=== PATIENT | male | born 1930 | race Caucasian/White ===

== ENCOUNTER 2018-09-30 08:06 | Day surgery (SDC) | payer MEDICARE, OTHER ==
[~2018-09-30 08:06] MED LIST: Bupivacaine 0.25%/EPINEPHrine 1:200,000 10 ML SDV INJECT ONE; Lactated Ringers 1,000 ML IV SCH; ceFAZolin 2 GM in Premix Bag 1 BAG IV ONE; traMADol 50 MG Tab PO PRN
--- NOTE | 2018-09-30 08:53 | PCM.PREANE ---
Preanesthetic Assessment - Anesthesia/Transfusion/Family Hx Anesthesia History: Prior Anesthesia Without Reaction Other Type of Anesthesia Reaction Comment: Denies any known problems Family History of Anesthesia Reaction: No Transfusion History: No Prior Transfusion(s) - Review of Systems General: No Symptoms Pulmonary: No Symptoms Cardiovascular: No Symptoms Gastrointestinal: No Symptoms Neurological: No Symptoms Other: Reports: None - Physical Assessment NPO Status Date: 09/29/18 O2 Sat by Pulse Oximetry: 97 Respiratory Rate: 15 Vital Signs: Last Vital Signs Temp 98.1 F 09/30/18 08:30 Pulse 61 09/30/18 08:30 Resp 15 09/30/18 08:30 BP 177/82 H 09/30/18 08:30 Pulse Ox 97 09/30/18 08:30 Height: 5 ft 9 in Weight: 74.843 kg ASA Class: 3 Mental Status: Alert & Oriented x3 Airway Class: Mallampati = 3 Dentition: Reports: Normal Dentition ROM/Head Extension: Full Lungs: Clear to Auscultation, Normal Respiratory Effort Cardiovascular: Regular Rate, Regular Rhythm - Allergies Allergies/Adverse Reactions: Allergies Allergy/AdvReac Type Severity Reaction Status Date / Time No Known Allergies Allergy Verified 09/29/18 07:45 - Blood Blood Available: No - Anesthesia Plan Pre-Op Medication Ordered: None - Acknowledgements Anesthesia Type Planned: General Anesthesia, MAC Pt an Appropriate Candidate for the Planned Anesthesia: Yes Alternatives and Risks of Anesthesia Discussed w Pt/Guardian: Yes Pt/Guardian Understands and Agrees with Anesthesia Plan: Yes Additional Comments: PMH: cad with stents x 2 10 years ago, no ischemic sx, BPH, hld, htn, thrombocytopenia PLAN: mac/tiva PreAnesthesia Questionnaire HEENT History: Reports: Impaired Vision Other HEENT History: wears glasses Cardiovascular History: Reports: CAD, High Cholesterol Respiratory History: Reports: None Gastrointestinal History: Reports: None Genitourinary History: Reports: None Neurological History: Reports: None Psychiatric History: Reports: None Endocrine/Metabolic History: Reports: None Hematologic History: Reports: None Immunologic History: Reports: None Oncologic (Cancer) History: Reports: None Dermatologic History: Reports: None - Past Surgical History Head Surgeries/Procedures: Reports: None HEENT Surgical History: Reports: Cataract Surgery, Tonsillectomy Cardiovascular Surgical History: Reports: Coronary Artery Stent Other Cardiovascular Surgeries/Procedures: x2 in 2007 Respiratory Surgical History: Reports: None GI Surgical History: Reports: None Male Surgical History: Reports: None Endocrine Surgical History: Reports: None Neurological Surgical History: Reports: None Musculoskeletal Surgical History: Reports: Carpal Tunnel, Other (See Below) Other Musculoskeletal Surgeries/Procedures:: lesion removal right ankle, tendon repair right finger, bilateral carpal tunnel Oncologic Surgical History: Reports: None Dermatological Surgical History: Reports: None - SUBSTANCE USE Smoking Status *Q: Former Smoker Tobacco Use Within Last Twelve Months: No Recreational Drug Use History: No - HOME MEDS Home Medications: Home Meds Aspirin [Adult Low Dose Aspirin EC] 81 mg PO DAILY 12/20/13 [History] Carvedilol [Coreg] 0.5 tab PO BID 12/20/13 [History] Doxazosin [Cardura] 0.5 tab PO BEDTIME 12/20/13 [History] atorvaSTATin [Lipitor] 0.5 tab PO BEDTIME 12/20/13 [History] - CURRENT (IN HOUSE) MEDS Current Meds: Current Medications Lactated Ringer's (Ringers, Lactated) 1,000 mls @ 125 mls/hr IV ASDIRECTED [facility] Last Admin: 09/30/18 08:46 Dose: 125 mls/hr Tramadol HCl (Ultram) 50 mg PO Q4H PRN PRN Reason: Pain Discontinued Medications Bupivacaine HCl/Epinephrine Bitart (Marcaine 0.25%/Epinephrine 1:200,000) 10 ml INJECT ONETIME ONE Stop: 09/30/18 08:01 Cefazolin Sodium/Dextrose 2 gm (/ Premix) 50 mls @ 100 mls/hr IV ONETIME ONE Stop: 09/30/18 08:29
[2018-09-30] MEDS ORDERED: fentaNYL 100 MCG/2 ML SDV ONE (09:43)
[2018-09-30] MEDS ORDERED: Propofol 200 MG/20 ML SDV ONE (09:43)
[2018-09-30] MEDS ORDERED: Sodium Chloride 0.9% 20 ML ONE (09:55)
[2018-09-30] MEDS ORDERED: ceFAZolin 1 GM Vial ONE (09:55)
[2018-09-30] MEDS ORDERED: Bupivacaine 0.25%/EPINEPHrine 1:200,000 10 ML SDV ONE (09:57)
[2018-09-30 10:48] VITALS: BP 136/61
--- NOTE | 2018-09-30 12:30 | PCM48HPAN ---
Post Anesthesia Note - EVALUATION WITHIN 48HRS OF ANESTHETIC Vital Signs in Normal Range: Yes Patient Participated in Evaluation: Yes Respiratory Function Stable: Yes Airway Patent: Yes Cardiovascular Function Stable: Yes Hydration Status Stable: Yes Pain Control Satisfactory: Yes Nausea and Vomiting Control Satisfactory: Yes Mental Status Recovered: Yes Resp Rate: 15
--- NOTE | 2018-10-01 12:37 | PCM.OPNOTE ---
- General Post-Op/Procedure Note Date of Surgery/Procedure: 09/30/18 Operative Procedure(s): left middle finger trigger finger release and excision of central chest inflamed cyst 1.5cm total lenght of excision with simple closure Pre Op Diagnosis: left middle figner trigger finger central chest inflamed cyst 1cm Post-Op Diagnosis: Same Anesthesia Technique: Local, MAC Primary Surgeon: Christel Rivera [employer] Professor: Karishma Hester Complications: None Condition: Good
--- NOTE | 2018-10-01 18:59 | OR ---
SURGEON: ROSANNE SAGASTUME MD DATE OF PROCEDURE: 09/30/2018 PREOPERATIVE DIAGNOSIS: Left middle finger trigger finger and central chest inflamed cyst 1 cm. POSTOPERATIVE DIAGNOSIS: Left middle finger trigger finger and central chest inflamed cyst 1 cm. PROCEDURES: 1. Left middle finger trigger finger release. 2. Excision of central chest inflamed cyst 1.5 cm total length of excision with simple closure. SHANK BONER: KELLI William. ANESTHESIA: Local MAC. INDICATIONS: Mr. James Villegas is an 88-year-old gentleman with several problems today. Risks and benefits of removal of the chest lesion that has been inflamed numerous times may cause infection were discussed with him. He was also in agreement to proceed with a trigger finger release. We will proceed with trigger finger as it is a clean part of the case. This will go first. PROCEDURE IN DETAIL: After informed consent was obtained and placed on the chart, the patient was brought to the operating theater and laid in supine position. After adequate local MAC anesthesia was obtained, the area was prepped and draped, and a time- out was completed to confirm side and site. Attention was then paid to release of left middle finger trigger finger with a #15 blade through the skin. Subcutaneous tissues were then completed under blunt dissection until visualization of the A1 melody. A #15 blade was used to breach this and scissor was carried distally and proximally under direct visualization until complete release. The tendon was then brought through range of motion to ensure that there was no other suspicious lesions. There was a small ganglion cyst on the tendon itself that was also removed. Once this was completed, the area was irrigated and closed using a 5-0 nylon stitch in a horizontal mattress fashion. Attention was then paid to the central chest inflamed cyst. With separate prepping and appropriate draping, the lesion was excised in an elliptical fashion for a total length of 1.5 cm. It was sent for pathology. Once adequately excised, the wound was closed using a 4-0 Monocryl in a running subcuticular fashion for a total length of 1.5 cm in a simple closure. The wound was dressed with a Tegaderm border. The patient tolerated this well. All counts and needles were correct at the end of the case. FOLLOWUP INSTRUCTIONS: The patient will see us in 10 to 14 days for suture removal, sooner if any problems, questions, or concerns. HEGGTHE / MODL /[id number]
== END 2018-09-30 11:20 | disposition home or self-care (01) ==
LOC: MW.SDS 08:06
PROVIDERS: ATTEND Plastic Surgery
DX: M65.332 Trigger finger, left middle finger (principal); L72.0 Epidermal cyst; I10 Essential (primary) hypertension; E78.00 Pure hypercholesterolemia, unspecified; N40.1 Benign prostatic hyperplasia with lower urinary tract symptoms; R35.1 Nocturia; Z79.82 Long term (current) use of aspirin; Z79.899 Other long term (current) drug therapy; Z87.891 Personal history of nicotine dependence
CPT/HCPCS: 11402; 26055; J0690; J2704; J3010; J3490; J7120

== ENCOUNTER 2019-01-22 14:51 | Inpatient (IN) | payer MEDICARE, OTHER ==
[2019-01-22] MEDS ORDERED: Sodium Chloride 0.9% 10 ML Syringe FLUSH PRN (15:55)
[2019-01-22] MEDS ORDERED: Sodium Chloride 0.9% 2.5 ML Syringe FLUSH PRN (15:55)
[2019-01-22] MEDS ORDERED: Morphine 2 MG/ML Syringe IVPUSH ONE ×2 (15:57→18:08)
--- NOTE | 2019-01-22 15:57 | CR ---
INDICATION: Chest pain and shortness of breath TECHNIQUE: Chest 2 views COMPARISON: July 04, 2014 FINDINGS: Cardiovascular and mediastinum: Heart size and vasculature are normal in caliber and appearance. Lungs and pleural spaces: There is blunting of the right costophrenic angle. Minimal bibasilar atelectasis or scarring. Remainder of the lungs and pleural spaces are clear. No pneumothorax. Bones and soft tissues: No rib fractures or lesions evident. IMPRESSION: Possible trace right-sided pleural effusion. Remainder of the exam is unremarkable. No other specific finding to explain chest pain or shortness of breath. Dictated by Bobo Mcallister MD @ Jan 22 2019 3:54PM Signed by Dr. Bobo Mcallister @ Jan 22 2019 3:56PM
[2019-01-22] MEDS ORDERED: Sodium Chloride 0.9% 500 ML IV SCH (16:00)
--- NOTE | 2019-01-22 16:02 | EDM.PDOC ---
ED HPI GENERAL MEDICAL PROBLEM - General Chief Complaint: Respiratory Problem Stated Complaint: PAIN IN SIDE WHEN TAKING A BREATH Time Seen by Provider: 01/22/19 15:31 - History of Present Illness INITIAL COMMENTS - FREE TEXT/NARRATIVE: HISTORY AND PHYSICAL: History of present illness: The patient is 88-year-old male with a history of hypertension hypercholesterolemia who follows with Dr. Dow in our clinic and presents with 3 days of pain at his right anterior and lateral rib area he says is at the rib level and underneath it. He says that if he takes a deep breath the pain is intensified and movement also makes the pain worse. He has not had a cough or fever his had no vomiting or diarrhea and no flank pain and no urinary issues. He tells me that there is some discomfort in the right upper quadrant area but he feels like it is underneath his ribs and in the rib cage area. He denies any recent trauma. He has no pulmonary or cardiac history. The patient says that he had dental work recently and had been on some antibiotics for that. Review of systems: As per history of present illness and below otherwise all systems reviewed and negative. Past medical history: As per history of present illness and as reviewed below otherwise noncontributory. Surgical history: As per history of present illness and as reviewed below otherwise noncontributory. Social history: No reported history of drug or alcohol abuse. Family history: As per history of present illness and as reviewed below otherwise noncontributory. Physical exam: General: Well-developed well-nourished thin man who is nontoxic and looks uncomfortable with movement and any deep breaths. He speaking without breathlessness and vital signs are noted by me. HEENT: Atraumatic, normocephalic, pupils reactive, negative for conjunctival pallor or scleral icterus, mucous membranes moist, throat clear, neck supple, nontender, trachea midline. Lungs: Diminished breath sounds bilaterally but very diminished on the right mid to lower lung field with minimal air exchange but no work of breathing wheezing or stridor, there is reproducible tenderness when I palpate the lateral right lower ribs extending into the anterior axillary line but there is no anterior chest wall or rib tenderness, there is no defects deformities crepitus or ecchymosis Heart: S1S2, regular rate and rhythm, negative for clicks, rubs, or JVD. Abdomen: Soft, nondistended, bowel sounds are hypoactive and there is some diffuse right-sided abdominal tenderness more in the right upper quadrant and right mid abdomen with some voluntary guarding but no involuntary guarding or rebound. Negative for masses or hepatosplenomegaly. Negative for costovertebral tenderness. Pelvis: Stable nontender. Genitourinary: Deferred. Rectal: Deferred. Extremities: Atraumatic, negative for cords or calf pain. Neurovascular unremarkable. No pedal edema Neuro: Awake, alert, oriented. Cranial nerves II through XII unremarkable. Cerebellum unremarkable. Motor and sensory unremarkable throughout. Exam nonfocal. Diagnostics: CBC CMP INR lactic acid chest x-ray CT scan of the chest abdomen and pelvis PTT Therapeutics: IV O2 monitor IV fluids morphine Toradol Heparin per protocol Dr. Heaton from [facility] has contacted me and has said that there is no acute findings in the abdomen and pelvis but on the CTA of the chest the patient does have a large clot load in the right lower lobe and no other PE elsewhere especially in the central vessels. There is some mild RV strain. 191: Case was discussed with Dr. Shelley who would like heparin per protocol to be given with the bolus and drip and admission as an observation. I will place him on telemetry. I discussed the CT scan and lab results with the patient and he is agreeable to admission. The patient and friend at bedside are now telling me that he was seen for varicose veins earlier this week in [place] and he is possibly wearing compression hose. He says that he does not been wearing them the last few days. Patient has never been hypoxic or to The care nor has he ever complained of shortness of breath. Impression: Right lower lobe pulmonary embolism Definitive disposition and diagnosis as appropriate pending reevaluation and review of above. Right Chest Pain Score (Numeric/FACES): 10 - Related Data Allergies Allergy/AdvReac Type Severity Reaction Status Date / Time No Known Allergies Allergy Verified 01/22/19 15:33 Home Meds: Home Meds Aspirin [Adult Low Dose Aspirin EC] 81 mg PO DAILY 12/20/13 [History] Carvedilol [Coreg] 0.5 tab PO BEDTIME 12/20/13 [History] Doxazosin [Cardura] 0.5 tab PO BEDTIME 12/20/13 [History] atorvaSTATin [Lipitor] 0.5 tab PO BEDTIME 12/20/13 [History] traMADol [Ultram] 50 mg PO Q4H PRN #20 tablet 09/30/18 [Rx] Penicillin V Potassium 500 mg PO Q6HR 01/22/19 [History] Past Medical History HEENT History: Reports: Impaired Vision Other HEENT History: wears glasses Cardiovascular History: Reports: CAD, High Cholesterol, Stents Respiratory History: Reports: None Gastrointestinal History: Reports: None Genitourinary History: Reports: None Neurological History: Reports: None Psychiatric History: Reports: None Endocrine/Metabolic History: Reports: None Hematologic History: Reports: None Immunologic History: Reports: None Oncologic (Cancer) History: Reports: None Dermatologic History: Reports: None - Past Surgical History HEENT Surgical History: Reports: Cataract Surgery, Tonsillectomy Cardiovascular Surgical History: Reports: Coronary Artery Stent Other Cardiovascular Surgeries/Procedures: x2 in 2007 Respiratory Surgical History: Reports: None GI Surgical History: Reports: None Male Surgical History: Reports: None Endocrine Surgical History: Reports: None Neurological Surgical History: Reports: None Musculoskeletal Surgical History: Reports: Carpal Tunnel, Other (See Below) Other Musculoskeletal Surgeries/Procedures:: lesion removal right ankle, tendon repair right finger, bilateral carpal tunnel Oncologic Surgical History: Reports: None Dermatological Surgical History: Reports: None Social & Family History - Family History Family Medical History: Noncontributory - Tobacco Use Smoking Status *Q: Never Smoker - Recreational Drug Use Recreational Drug Use: No ED ROS GENERAL - Review of Systems Review Of Systems: ROS reveals no pertinent complaints other than HPI. ED EXAM, GENERAL - Physical Exam Exam: See Below (See dictation) Course - Vital Signs Last Recorded V/S: Last Vital Signs Temp 36.7 C 01/22/19 15:38 Pulse 70 01/22/19 18:51 Resp 16 01/22/19 18:18 BP 110/56 L 01/22/19 18:51 Pulse Ox 95 01/22/19 18:18 - Orders/Labs/Meds Orders: Active Orders 24 hr Category Date Time Status Patient Status [ADT] Stat ADT 01/22/19 19:18 Ordered Cardiac Monitoring [RC] . DIRECTED Care 01/22/19 15:55 Active Oxygen Therapy, ED [RC] ASDIRECTED Care 01/22/19 15:55 Active Pulse Oximetry [RC] ASDIRECTED Care 01/22/19 15:55 Active PTT,PARTIAL THROMBOPLSTIN TIME [COAG] Stat Lab 01/22/19 19:18 Ordered Heparin Sod,Pork In 0.45% Nacl [Heparin-1/2Ns 25,000 Med 01/22/19 19:30 Active Units/500] 25,000 unit in 500 ml IV TITRATE Sodium Chloride 0.9% [Normal Saline] 500 ml Med 01/22/19 16:00 Active IV STAT Sodium Chloride 0.9% [Saline Flush] Med 01/22/19 15:55 Active 10 ml FLUSH ASDIRECTED PRN Sodium Chloride 0.9% [Saline Flush] Med 01/22/19 15:55 Active 2.5 ml FLUSH ASDIRECTED PRN Saline Lock Insert [OM.PC] Stat Oth 01/22/19 15:55 Ordered Medication Orders Sodium Chloride (Normal Saline) 500 mls @ 999 mls/hr IV STAT MAE Last Admin: 01/22/19 16:34 Dose: 999 mls/hr Heparin Sodium/Sodium Chloride (Heparin-1/2ns 25,000 Units/500) 25,000 unit in 500 mls @ 25.311 mls/hr IV TITRATE MAE; Protocol Sodium Chloride (Saline Flush) 10 ml FLUSH ASDIRECTED PRN PRN Reason: Keep Vein Open Last Admin: 01/22/19 16:34 Dose: 10 ml Sodium Chloride (Saline Flush) 2.5 ml FLUSH ASDIRECTED PRN PRN Reason: Keep Vein Open Last Admin: 01/22/19 16:34 Dose: 2.5 ml Labs: Laboratory Tests 01/22/19 01/22/19 01/22/19 Range/Units 16:26 16:26 16:26 WBC 10.47 (4.0-11.0) K/uL RBC 4.33 L (4.50-5.90) M/uL Hgb 13.0 (13.0-17.0) g/dL Hct 39.1 (38.0-50.0) % MCV 90.3 (80.0-98.0) fL MCH 30.0 (27.0-32.0) pg MCHC 33.2 (31.0-37.0) g/dL RDW Std Deviation 47.0 (28.0-62.0) fl RDW Coeff of Rosalio 14 (11.0-15.0) % Plt Count 111 L (150-400) K/uL MPV 9.60 (7.40-12.00) fL Neut % (Auto) 82.9 H (48.0-80.0) % Lymph % (Auto) 5.7 L (16.0-40.0) % [place] % (Auto) 11.1 (0.0-15.0) % Eos % (Auto) 0.1 (0.0-7.0) % Baso % (Auto) 0.2 (0.0-1.5) % Neut # (Auto) 8.7 H (1.4-5.7) K/uL Lymph # (Auto) 0.6 (0.6-2.4) K/uL [place] # (Auto) 1.2 H (0.0-0.8) K/uL Eos # (Auto) 0.0 (0.0-0.7) K/uL Baso # (Auto) 0.0 (0.0-0.1) K/uL Nucleated RBC % 0.0 /100WBC Nucleated RBCs # 0 K/uL INR 1.14 Lactate 1.0 (0.20-2.00) mmol/L Sodium (136-148) mmol/L Potassium (3.5-5.1) mmol/L Chloride (98-107) mmol/L Carbon Dioxide (21.0-32.0) mmol/L BUN (7.0-18.0) mg/dL Creatinine (0.8-1.3) mg/dL Est Cr Clr Drug Dosing mL/min Estimated GFR (MDRD) ml/min Glucose (74-106) mg/dL Calcium (8.5-10.1) mg/dL Total Bilirubin (0.2-1.0) mg/dL AST (15-37) IU/L ALT (14-63) IU/L Alkaline Phosphatase (46-116) U/L Total Protein (6.4-8.2) g/dL Albumin (3.4-5.0) g/dL Globulin (2.6-4.0) g/dL Albumin/Globulin Ratio (0.9-1.6) 01/22/19 Range/Units 16:26 WBC (4.0-11.0) K/uL RBC (4.50-5.90) M/uL Hgb (13.0-17.0) g/dL Hct (38.0-50.0) % MCV (80.0-98.0) fL MCH (27.0-32.0) pg MCHC (31.0-37.0) g/dL RDW Std Deviation (28.0-62.0) fl RDW Coeff of Rosalio (11.0-15.0) % Plt Count (150-400) K/uL MPV (7.40-12.00) fL Neut % (Auto) (48.0-80.0) % Lymph % (Auto) (16.0-40.0) % [place] % (Auto) (0.0-15.0) % Eos % (Auto) (0.0-7.0) % Baso % (Auto) (0.0-1.5) % Neut # (Auto) (1.4-5.7) K/uL Lymph # (Auto) (0.6-2.4) K/uL [place] # (Auto) (0.0-0.8) K/uL Eos # (Auto) (0.0-0.7) K/uL Baso # (Auto) (0.0-0.1) K/uL Nucleated RBC % /100WBC Nucleated RBCs # K/uL INR Lactate (0.20-2.00) mmol/L Sodium 135 L (136-148) mmol/L Potassium 3.9 (3.5-5.1) mmol/L Chloride 101 (98-107) mmol/L Carbon Dioxide 25.5 (21.0-32.0) mmol/L BUN 22 H (7.0-18.0) mg/dL Creatinine 1.2 (0.8-1.3) mg/dL Est Cr Clr Drug Dosing 41.96 mL/min Estimated GFR (MDRD) 57.3 ml/min Glucose 125 H (74-106) mg/dL Calcium 8.7 (8.5-10.1) mg/dL Total Bilirubin 0.9 (0.2-1.0) mg/dL AST 22 (15-37) IU/L ALT 20 (14-63) IU/L Alkaline Phosphatase 57 (46-116) U/L Total Protein 6.6 (6.4-8.2) g/dL Albumin 2.6 L (3.4-5.0) g/dL Globulin 4.0 (2.6-4.0) g/dL Albumin/Globulin Ratio 0.7 L (0.9-1.6) Meds: Medications Generic Name Dose Route Start Last Admin Trade Name Freq PRN Reason Stop Dose Admin Sodium Chloride 500 mls @ 999 mls/hr 01/22/19 16:00 01/22/19 16:34 Normal Saline IV 999 mls/hr STAT MAE Administration Heparin Sodium/Sodium Chloride 25,000 unit in 500 mls @ 25.311 mls/hr 19:30 Heparin-1/2ns 25,000 Units/500 IV TITRATE MAE Protocol 18 UNITS/KG/HR Sodium Chloride 10 ml 01/22/19 15:55 01/22/19 16:34 Saline Flush FLUSH 10 ml ASDIRECTED PRN Administration Keep Vein Open Sodium Chloride 2.5 ml 01/22/19 15:55 01/22/19 16:34 Saline Flush FLUSH 2.5 ml ASDIRECTED PRN Administration Keep Vein Open Discontinued Medications Generic Name Dose Route Start Last Admin Trade Name Freq PRN Reason Stop Dose Admin Heparin Sodium (Porcine) 5,000 units 01/22/19 19:19 Heparin Sodium IVPUSH 01/22/19 19:20 .BOLUS ONE Iopamidol 100 ml 01/22/19 18:07 01/22/19 18:08 Isovue Multipack-370 (76%) IVPUSH 01/22/19 18:08 100 ml ONETIME STA Administration Ketorolac Tromethamine 15 mg 01/22/19 18:08 01/22/19 18:14 Toradol IVPUSH 01/22/19 18:09 15 mg ONETIME ONE Administration Morphine Sulfate 2 mg 01/22/19 15:57 01/22/19 16:34 Morphine IVPUSH 01/22/19 15:58 2 mg ONETIME ONE Administration Morphine Sulfate 4 mg 01/22/19 18:08 01/22/19 18:14 Morphine IVPUSH 01/22/19 18:09 4 mg ONETIME ONE Administration Departure - Departure Time of Disposition: 19:21 Disposition: Refer to Observation Condition: Good Clinical Impression: Pulmonary embolism Qualifiers: Pulmonary embolism type: unspecified Chronicity: acute - Discharge Information Referrals: PCP,Unknown [Primary Care Provider] - Forms: ED Department Discharge - My Orders Last 24 Hours: My Active Orders 01/22/19 15:55 Cardiac Monitoring [RC] . DIRECTED Oxygen Therapy, ED [RC] ASDIRECTED Pulse Oximetry [RC] ASDIRECTED Sodium Chloride 0.9% [Saline Flush] 10 ml FLUSH ASDIRECTED PRN Sodium Chloride 0.9% [Saline Flush] 2.5 ml FLUSH ASDIRECTED PRN Saline Lock Insert [OM.PC] Stat 01/22/19 16:00 Sodium Chloride 0.9% [Normal Saline] 500 ml IV STAT 01/22/19 19:18 Patient Status [ADT] Stat PTT,PARTIAL THROMBOPLSTIN TIME [COAG] Stat 01/22/19 19:30 Heparin Sod,Pork In 0.45% Nacl [Heparin-1/2Ns 25,000 Units/500] 25,000 unit in 500 ml IV TITRATE - Assessment/Plan Last 24 Hours: My Active Orders 01/22/19 15:55 Cardiac Monitoring [RC] . DIRECTED Oxygen Therapy, ED [RC] ASDIRECTED Pulse Oximetry [RC] ASDIRECTED Sodium Chloride 0.9% [Saline Flush] 10 ml FLUSH ASDIRECTED PRN Sodium Chloride 0.9% [Saline Flush] 2.5 ml FLUSH ASDIRECTED PRN Saline Lock Insert [OM.PC] Stat 01/22/19 16:00 Sodium Chloride 0.9% [Normal Saline] 500 ml IV STAT 01/22/19 19:18 Patient Status [ADT] Stat PTT,PARTIAL THROMBOPLSTIN TIME [COAG] Stat 01/22/19 19:30 Heparin Sod,Pork In 0.45% Nacl [Heparin-1/2Ns 25,000 Units/500] 25,000 unit in 500 ml IV TITRATE
[2019-01-22 16:58] LABS: CARBON DIOXIDE,CO2 25.5 mmol/L (21.0-32.0); POTASSIUM,K 3.9 mmol/L (3.5-5.1)
[2019-01-22] MEDS ORDERED: Iopamidol 755 MG/ML 500 ML Multipack Bottle IVPUSH STA (18:07)
[2019-01-22] MEDS ORDERED: Ketorolac 30 MG/ML SDV IVPUSH ONE (18:08)
--- NOTE | 2019-01-22 18:58 | CT ---
INDICATION: Right upper quadrant pain with chest pain. History of rib fracture. COMPARISON: None available TECHNIQUE: CT examination of the abdomen and pelvis was performed with the uneventful intravenous administration of Isovue 370 as part of the accompanying CTA of the chest while 3 mm thick axial sections were obtained from the lung bases through the pubic symphysis. Oral contrast was not administered. Please note that all CT scans at this facility use dose modulation, iterative reconstruction, and/or weight-based dosing when appropriate to reduce radiation dose to as low as reasonably achievable. FINDINGS: In the abdomen, the liver has several simple cysts in the dome of the left lobe, of no clinical concern. The pancreas and adrenals are normal in appearance. The spleen is top-normal in size, measuring 12.2 centimeters in length. There are multiple parapelvic cysts in the left kidney there is a 2.9 centimeter cyst arising from the anterior interpolar region. The gallbladder is normal in appearance. The moderately calcified abdominal aorta is normal in caliber with no sign of dilatation. There is no sign of retroperitoneal mass or adenopathy. The stomach, loops of small bowel, and colon in the abdomen are normal in appearance. The cecum is located in the right upper quadrant near the midline. The normal-appearing appendix is seen projecting inferiorly from the cecum near the midline. There is prominent sigmoid diverticulosis without evidence of diverticulitis. The loops of small bowel and colon in the pelvis are otherwise normal in appearance. The prostate is prominently enlarged, measuring 6.7 centimeters in diameter. It is otherwise normal in appearance. The prostate projects superiorly into the base of the bladder. The urinary bladder is minimally distended with urine and is otherwise normal in appearance. There is no sign of pelvic or inguinal mass or adenopathy. There are mild bilateral inguinal hernias containing nonobstructed loops of small bowel. There is a small right pleural effusion with mild atelectasis of the posterior right lung base. There is minimal platelike atelectasis of the posterior left lung base. I do not see any sign of acute rib fracture in the inferior ribs included on today`s study. There is moderate scoliosis of the lumbar spine convex towards the left. There is moderate disc degenerative disease at L3-4. IMPRESSION: Small right pleural effusion with mild atelectasis of the posterior right lung base, without definite rib fracture in the inferior right chest. CT of the abdomen shows nothing in the abdomen to explain the patient`s right upper quadrant pain. Normal appearance of the gallbladder. The cecum and appendix are located in the right upper quadrant and are normal in appearance. Multiple left parapelvic cysts and a few cortical cysts with no sign of obstruction. CT of the pelvis shows prominent sigmoid diverticulosis with no sign of diverticulitis. Prominent enlargement of the prostate without definite bladder outlet obstruction. Please note that all CT scans at this facility use dose modulation, iterative reconstruction, and/or weight-based dosing when appropriate to reduce radiation dose to as low as reasonably achievable. Dictated by Antonio Heaton MD @ Jan 22 2019 6:43PM Signed by Dr. Antonio Heaton @ Jan 22 2019 6:56PM
--- NOTE | 2019-01-22 19:09 | CT ---
INDICATION: Right chest pain. History of rib fracture. A left PE. COMPARISON: None available TECHNIQUE: CT examination of the chest was performed with the uneventful intravenous administration of 100 cc of Isovue 370 while 1 mm thick axial sections were obtained through the pulmonary arteries. Please note that all CT scans at this facility use dose modulation, iterative reconstruction, and/or weight-based dosing when appropriate to reduce radiation dose to as low as reasonably achievable. FINDINGS: : There is a moderate amount of pulmonary embolism located in the right lower lobe pulmonary artery, extending into the posterior and lateral basilar segmental arteries. I do not see any additional thrombus elsewhere in the pulmonary arterial tree. There is evidence of right ventricular strain, with dilatation of the right ventricle resulting in abnormal elevation of the RV/LV ratio. The interventricular septum is not flattened or reversed bowed however. There is a mild right pleural effusion with mild atelectasis of the posterior right lung base. There is minimal platelike atelectasis in the posterior left lung base. I do not see a definite displaced right rib fracture to correlate with the history of rib fracture. There is no sign of pneumothorax or pleural hematoma to correlate with the history of rib fracture. There is no sign of mediastinal or hilar mass or adenopathy. The heart has triple-vessel coronary calcification. The heart is normal in size. There is a trace pericardial effusion. The aorta and ascending great vessels are normal in appearance. There is no sign of supraclavicular or axillary mass or adenopathy. The visualized superior liver has a few small cysts in the dome of the left lobe of no clinical concern. The spleen and adrenals are normal in appearance. The osseous structures are normal in appearance for the patient`s age. There is no sign of any thoracic spine, sternal, or shoulder girdle fracture. The findings were discussed with Dr. Portillo at 1907 hours on 01/22/2019. IMPRESSION: Large amount of thrombus seen in the right lower lobe pulmonary artery. Clot burden is moderate. Evidence of right ventricular strain, with dilatation of the right ventricle, but without flattening or reversed curvature of the interventricular septum. Mild right pleural effusion and moderate consolidation of the posterior right lung base, consistent with atelectasis. I cannot definitely identify a rib fracture on the right. Please note that all CT scans at this facility use dose modulation, iterative reconstruction, and/or weight-based dosing when appropriate to reduce radiation dose to as low as reasonably achievable. Dictated by Antonio Heaton MD @ Jan 22 2019 6:57PM Signed by Dr. Antonio Heaton @ Jan 22 2019 7:09PM
[2019-01-22] MEDS ORDERED: Heparin Sodium 5,000 Units/ML Vial IVPUSH ONE (19:19)
[2019-01-22] MEDS ORDERED: Heparin Sod,Pork In 0.45% Nacl 25,000 UNIT/500 ML IV.SOLN IV ONE (19:23)
[2019-01-22] MEDS: Heparin Sod,Pork In 0.45% Nacl 25,000 UNIT/500 ML IV.SOLN IV SCH (19:29)
[2019-01-23] MEDS: Heparin Sod,Pork In 0.45% Nacl 25,000 UNIT/500 ML IV.SOLN IV SCH ×2 (03:44→17:46)
[2019-01-23 06:31] LABS: CARBON DIOXIDE,CO2 29.5 mmol/L (21.0-32.0); POTASSIUM,K 4.3 mmol/L (3.5-5.1)
[2019-01-23] MEDS ORDERED: Bisacodyl 5 MG Tab PO ONE (07:52)
[2019-01-23] MEDS ORDERED: Heparin Sodium 5,000 Units/ML Vial IVPUSH ONE (10:25)
--- NOTE | 2019-01-23 10:45 | PCM.HP ---
H&P History of Present Illness - General Date of Service: 01/23/19 Admit Problem/Dx: Admission Diagnosis/Problem Admission Diagnosis/Problem PE, Pulmonary embolism - History of Present Illness Initial Comments - Free Text/Narative: 88 y/o male with history of CAD s/p stent placement who presented to the ER complaining of pleuritic chest pain for the past few days. States he had some teeth removed recently and has been home sitting on recliner due to teeth discomfort. Denies any recent travels. No family history of blood clots. In the ER, CT chest showed a moderate right lower lobe pulmonary artery thrombus with some right ventricular strain. He was started on heparin drip. Placed on supplemental oxygen. This morning, he states he feels somewhat better. Not as short of breath. Still some right pleuritic chest pain, but improved. No hemoptysis. Right Chest Pain Score (Numeric/FACES): 10 - Related Data Allergies/Adverse Reactions: Allergies Allergy/AdvReac Type Severity Reaction Status Date / Time No Known Allergies Allergy Verified 01/22/19 20:46 Home Medications: Home Meds Aspirin [Adult Low Dose Aspirin EC] 81 mg PO DAILY 12/20/13 [History] Carvedilol [Coreg] 0.5 tab PO BEDTIME 12/20/13 [History] Doxazosin [Cardura] 0.5 tab PO BEDTIME 12/20/13 [History] atorvaSTATin [Lipitor] 0.5 tab PO BEDTIME 12/20/13 [History] traMADol [Ultram] 50 mg PO Q4H PRN #20 tablet 09/30/18 [Rx] Penicillin V Potassium 500 mg PO Q6HR 01/22/19 [History] Past Medical History HEENT History: Reports: Impaired Vision Other HEENT History: wears glasses Cardiovascular History: Reports: CAD, High Cholesterol, Stents Respiratory History: Reports: None Gastrointestinal History: Reports: None Genitourinary History: Reports: None Neurological History: Reports: None Psychiatric History: Reports: None Endocrine/Metabolic History: Reports: None Hematologic History: Reports: None Immunologic History: Reports: None Oncologic (Cancer) History: Reports: None Dermatologic History: Reports: None - Past Surgical History HEENT Surgical History: Reports: Cataract Surgery, Tonsillectomy Cardiovascular Surgical History: Reports: Coronary Artery Stent Other Cardiovascular Surgeries/Procedures: x2 in 2007 Respiratory Surgical History: Reports: None GI Surgical History: Reports: None Male Surgical History: Reports: None Endocrine Surgical History: Reports: None Neurological Surgical History: Reports: None Musculoskeletal Surgical History: Reports: Carpal Tunnel, Other (See Below) Other Musculoskeletal Surgeries/Procedures:: lesion removal right ankle, tendon repair right finger, bilateral carpal tunnel Oncologic Surgical History: Reports: None Dermatological Surgical History: Reports: None Social & Family History - Family History Family Medical History: Noncontributory - Tobacco Use Smoking Status *Q: Never Smoker Second Hand Smoke Exposure: No - Caffeine Use Caffeine Use: Reports: Coffee - Recreational Drug Use Recreational Drug Use: No H&P Review of Systems - Review of Systems: Review Of Systems: ROS reveals no pertinent complaints other than HPI. Exam - Exam Exam: See Below - Vital Signs Vital Signs: Last Vital Signs Temp 36.5 C 01/23/19 08:00 Pulse 63 01/23/19 08:00 Resp 16 01/23/19 08:00 BP 124/66 01/23/19 08:00 Pulse Ox 95 01/23/19 08:00 Weight: 70.488 kg - Exam Quality Assessment: Supplemental Oxygen General: Alert, Oriented, Cooperative Lungs: Clear to Auscultation, Normal Respiratory Effort, Other (bilateral bibasilar crackles. no wheezing.) Cardiovascular: Regular Rate, Regular Rhythm GI/Abdominal Exam: Normal Bowel Sounds, Soft, Non-Tender, No Distention Extremities: Normal Inspection, No Pedal Edema - Patient Data Lab Results Last 24 hrs: Laboratory Results - last 24 hr 01/22/19 01/22/19 01/22/19 Range/Units 16:25 16:26 16:26 WBC 10.47 (4.0-11.0) K/uL RBC 4.33 L (4.50-5.90) M/uL Hgb 13.0 (13.0-17.0) g/dL Hct 39.1 (38.0-50.0) % MCV 90.3 (80.0-98.0) fL MCH 30.0 (27.0-32.0) pg MCHC 33.2 (31.0-37.0) g/dL RDW Std Deviation 47.0 (28.0-62.0) fl RDW Coeff of Rosalio 14 (11.0-15.0) % Plt Count 111 L (150-400) K/uL MPV 9.60 (7.40-12.00) fL Neut % (Auto) 82.9 H (48.0-80.0) % Lymph % (Auto) 5.7 L (16.0-40.0) % [place]idan % (Auto) 11.1 (0.0-15.0) % Eos % (Auto) 0.1 (0.0-7.0) % Baso % (Auto) 0.2 (0.0-1.5) % Neut # (Auto) 8.7 H (1.4-5.7) K/uL Lymph # (Auto) 0.6 (0.6-2.4) K/uL [place]idan # (Auto) 1.2 H (0.0-0.8) K/uL Eos # (Auto) 0.0 (0.0-0.7) K/uL Baso # (Auto) 0.0 (0.0-0.1) K/uL Nucleated RBC % 0.0 /100WBC Nucleated RBCs # 0 K/uL INR 1.14 APTT 33.5 H (18.6-31.3) SEC Lactate (0.20-2.00) mmol/L Sodium (136-148) mmol/L Potassium (3.5-5.1) mmol/L Chloride (98-107) mmol/L Carbon Dioxide (21.0-32.0) mmol/L BUN (7.0-18.0) mg/dL Creatinine (0.8-1.3) mg/dL Est Cr Clr Drug Dosing mL/min Estimated GFR (MDRD) ml/min Glucose (74-106) mg/dL Calcium (8.5-10.1) mg/dL Total Bilirubin (0.2-1.0) mg/dL AST (15-37) IU/L ALT (14-63) IU/L Alkaline Phosphatase (46-116) U/L Total Protein (6.4-8.2) g/dL Albumin (3.4-5.0) g/dL Globulin (2.6-4.0) g/dL Albumin/Globulin Ratio (0.9-1.6) 01/22/19 01/22/19 01/23/19 Range/Units 16:26 16:26 01:28 WBC (4.0-11.0) K/uL RBC (4.50-5.90) M/uL Hgb (13.0-17.0) g/dL Hct (38.0-50.0) % MCV (80.0-98.0) fL MCH (27.0-32.0) pg MCHC (31.0-37.0) g/dL RDW Std Deviation (28.0-62.0) fl RDW Coeff of Rosalio (11.0-15.0) % Plt Count (150-400) K/uL MPV (7.40-12.00) fL Neut % (Auto) (48.0-80.0) % Lymph % (Auto) (16.0-40.0) % Sheridan % (Auto) (0.0-15.0) % Eos % (Auto) (0.0-7.0) % Baso % (Auto) (0.0-1.5) % Neut # (Auto) (1.4-5.7) K/uL Lymph # (Auto) (0.6-2.4) K/uL Sheridan # (Auto) (0.0-0.8) K/uL Eos # (Auto) (0.0-0.7) K/uL Baso # (Auto) (0.0-0.1) K/uL Nucleated RBC % /100WBC Nucleated RBCs # K/uL INR APTT 110.5 H (18.6-31.3) SEC Lactate 1.0 (0.20-2.00) mmol/L Sodium 135 L (136-148) mmol/L Potassium 3.9 (3.5-5.1) mmol/L Chloride 101 (98-107) mmol/L Carbon Dioxide 25.5 (21.0-32.0) mmol/L BUN 22 H (7.0-18.0) mg/dL Creatinine 1.2 (0.8-1.3) mg/dL Est Cr Clr Drug Dosing 41.96 mL/min Estimated GFR (MDRD) 57.3 ml/min Glucose 125 H (74-106) mg/dL Calcium 8.7 (8.5-10.1) mg/dL Total Bilirubin 0.9 (0.2-1.0) mg/dL AST 22 (15-37) IU/L ALT 20 (14-63) IU/L Alkaline Phosphatase 57 (46-116) U/L Total Protein 6.6 (6.4-8.2) g/dL Albumin 2.6 L (3.4-5.0) g/dL Globulin 4.0 (2.6-4.0) g/dL Albumin/Globulin Ratio 0.7 L (0.9-1.6) 01/23/19 01/23/19 01/23/19 Range/Units 05:27 05:27 09:46 WBC 6.57 (4.0-11.0) K/uL RBC 3.84 L (4.50-5.90) M/uL Hgb 11.5 L (13.0-17.0) g/dL Hct 35.1 L (38.0-50.0) % MCV 91.4 (80.0-98.0) fL MCH 29.9 (27.0-32.0) pg MCHC 32.8 (31.0-37.0) g/dL RDW Std Deviation 48.7 (28.0-62.0) fl RDW Coeff of Rosalio 14 (11.0-15.0) % Plt Count 104 L (150-400) K/uL MPV 9.50 (7.40-12.00) fL Neut % (Auto) 72.7 (48.0-80.0) % Lymph % (Auto) 14.8 L (16.0-40.0) % [place]idan % (Auto) 10.8 (0.0-15.0) % Eos % (Auto) 1.5 (0.0-7.0) % Baso % (Auto) 0.2 (0.0-1.5) % Neut # (Auto) 4.8 (1.4-5.7) K/uL Lymph # (Auto) 1.0 (0.6-2.4) K/uL [place] # (Auto) 0.7 (0.0-0.8) K/uL Eos # (Auto) 0.1 (0.0-0.7) K/uL Baso # (Auto) 0.0 (0.0-0.1) K/uL Nucleated RBC % 0.0 /100WBC Nucleated RBCs # 0 K/uL INR APTT 46.3 H (18.6-31.3) SEC Lactate (0.20-2.00) mmol/L Sodium 140 (136-148) mmol/L Potassium 4.3 (3.5-5.1) mmol/L Chloride 105 (98-107) mmol/L Carbon Dioxide 29.5 (21.0-32.0) mmol/L BUN 22 H (7.0-18.0) mg/dL Creatinine 1.3 (0.8-1.3) mg/dL Est Cr Clr Drug Dosing 38.73 mL/min Estimated GFR (MDRD) 52.2 ml/min Glucose 91 (74-106) mg/dL Calcium 8.6 (8.5-10.1) mg/dL Total Bilirubin (0.2-1.0) mg/dL AST (15-37) IU/L ALT (14-63) IU/L Alkaline Phosphatase (46-116) U/L Total Protein (6.4-8.2) g/dL Albumin (3.4-5.0) g/dL Globulin (2.6-4.0) g/dL Albumin/Globulin Ratio (0.9-1.6) Result Diagrams: 01/23/19 05:27 01/23/19 05:27 Problem List Initiated/Reviewed/Updated: Yes Orders Last 24hrs: Active Orders 24 hr Category Date Time Status Admission Status [Patient Status] [ADT] Routine ADT 01/23/19 09:05 Active EKG Documentation Completion [RC] STAT Care 01/22/19 19:54 Active Oxygen Therapy, ED [RC] ASDIRECTED Care 01/22/19 15:55 Active Pulse Oximetry [RC] ASDIRECTED Care 01/22/19 15:55 Active Telemetry Monitoring [Cardiac Monitoring] [RC] Q8H Care 01/22/19 19:50 Active Regular Diet [DIET] Diet 01/23/19 Breakfast Active Carvedilol [Coreg] Med 01/23/19 21:00 Active 3.125 mg PO BEDTIME Doxazosin [Cardura] Med 01/23/19 21:00 Active 4 mg PO BEDTIME Heparin Sod,Pork In 0.45% Nacl [Heparin-1/2Ns 25,000 Med 01/22/19 19:30 Active Units/500] 25,000 unit in 500 ml IV TITRATE Sodium Chloride 0.9% [Normal Saline] 500 ml Med 01/22/19 16:00 Active IV STAT Sodium Chloride 0.9% [Saline Flush] Med 01/22/19 15:55 Active 10 ml FLUSH ASDIRECTED PRN Sodium Chloride 0.9% [Saline Flush] Med 01/22/19 15:55 Active 2.5 ml FLUSH ASDIRECTED PRN atorvaSTATin [Lipitor] Med 01/23/19 21:00 Active 40 mg PO BEDTIME Saline Lock Insert [OM.PC] Stat Oth 01/22/19 15:55 Ordered Medication Orders Atorvastatin Calcium (Lipitor) 40 mg PO BEDTIME MAE Carvedilol (Coreg) 3.125 mg PO BEDTIME MAE Doxazosin Mesylate (Cardura) 4 mg PO BEDTIME MAE Sodium Chloride (Normal Saline) 500 mls @ 999 mls/hr IV STAT MAE Last Admin: 01/22/19 16:34 Dose: 999 mls/hr Heparin Sodium/Sodium Chloride (Heparin-1/2ns 25,000 Units/500) 25,000 unit in 500 mls @ 25.311 mls/hr IV TITRATE MAE; Protocol Last Titration: 01/23/19 10:21 Dose: 17 units/kg/hr, 23.904 mls/hr Admin: 01/23/19 03:44 Dose: 15 units/kg/hr, 21.092 mls/hr Titration: 01/23/19 03:44 Dose: 18 units/kg/hr, 25.311 mls/hr Admin: 01/22/19 19:29 Dose: 18 units/kg/hr, 25.311 mls/hr Sodium Chloride (Saline Flush) 10 ml FLUSH ASDIRECTED PRN PRN Reason: Keep Vein Open Last Admin: 01/22/19 16:34 Dose: 10 ml Sodium Chloride (Saline Flush) 2.5 ml FLUSH ASDIRECTED PRN PRN Reason: Keep Vein Open Last Admin: 01/22/19 16:34 Dose: 2.5 ml Assessment/Plan Comment:: A: 1. Pulmonary embolism 2. Constipation 2. PMH CAD s/p stent placement P: 1. Continue on heparin drip and titrate as needed. Will transition patient to NOAC like Xarelto on Friday. For now, continue on heparin drip. Miralax for constipation. Continued home meds.
[2019-01-23] MEDS ORDERED: Ketorolac 30 MG/ML SDV IVPUSH ONE (15:50)
[2019-01-23] MEDS ORDERED: Ketorolac 30 MG/ML SDV IVPUSH PRN (17:09)
[2019-01-23] MEDS ORDERED: Acetaminophen 500 MG Tab PO PRN (17:10)
[2019-01-23] MEDS ORDERED: Ketorolac 15 MG/ML SDV IVPUSH PRN (19:22)
[2019-01-23] MEDS: atorvaSTATin 40 MG Tab PO SCH (20:33)
[2019-01-23] MEDS: Carvedilol 3.125 MG Tab PO SCH (20:34)
[2019-01-23] MEDS: Doxazosin 4 MG Tab PO SCH (20:35)
[2019-01-24 04:11] LABS: CARBON DIOXIDE,CO2 28.4 mmol/L (21.0-32.0); POTASSIUM,K 4.3 mmol/L (3.5-5.1)
--- NOTE | 2019-01-24 09:23 | PCM.PN ---
- General Info Date of Service: 01/24/19 - Review of Systems Systems Review Comment:: chest pain improving, no shortness of breath - Patient Data Vitals - Most Recent: Last Vital Signs Temp 36.3 C 01/24/19 08:00 Pulse 63 01/24/19 08:00 Resp 16 01/24/19 08:00 BP 130/68 01/24/19 08:00 Pulse Ox 91 L 01/24/19 08:00 Weight - Most Recent: 70.488 kg I&O - Last 24 Hours: Intake & Output 01/23/19 01/24/19 01/24/19 22:59 06:59 14:59 Intake Total 740 969 Output Total 200 650 Balance 540 319 Lab Results Last 24 Hours: Laboratory Results - last 24 hr 01/23/19 01/23/19 01/23/19 Range/Units 09:46 15:49 21:48 WBC (4.0-11.0) K/uL RBC (4.50-5.90) M/uL Hgb (13.0-17.0) g/dL Hct (38.0-50.0) % MCV (80.0-98.0) fL MCH (27.0-32.0) pg MCHC (31.0-37.0) g/dL RDW Std Deviation (28.0-62.0) fl RDW Coeff of Rosalio (11.0-15.0) % Plt Count (150-400) K/uL MPV (7.40-12.00) fL Nucleated RBC % /100WBC Nucleated RBCs # K/uL APTT 46.3 H 65.0 H 61.6 H (18.6-31.3) SEC Sodium (136-148) mmol/L Potassium (3.5-5.1) mmol/L Chloride (98-107) mmol/L Carbon Dioxide (21.0-32.0) mmol/L BUN (7.0-18.0) mg/dL Creatinine (0.8-1.3) mg/dL Est Cr Clr Drug Dosing mL/min Estimated GFR (MDRD) ml/min Glucose (74-106) mg/dL Calcium (8.5-10.1) mg/dL 01/24/19 01/24/19 01/24/19 Range/Units 03:51 03:51 03:51 WBC 6.22 (4.0-11.0) K/uL RBC 3.89 L (4.50-5.90) M/uL Hgb 11.6 L (13.0-17.0) g/dL Hct 35.5 L (38.0-50.0) % MCV 91.3 (80.0-98.0) fL MCH 29.8 (27.0-32.0) pg MCHC 32.7 (31.0-37.0) g/dL RDW Std Deviation 47.4 (28.0-62.0) fl RDW Coeff of Rosalio 14 (11.0-15.0) % Plt Count 104 L (150-400) K/uL MPV 9.30 (7.40-12.00) fL Nucleated RBC % 0.0 /100WBC Nucleated RBCs # 0 K/uL APTT 66.8 H (18.6-31.3) SEC Sodium 138 (136-148) mmol/L Potassium 4.3 (3.5-5.1) mmol/L Chloride 105 (98-107) mmol/L Carbon Dioxide 28.4 (21.0-32.0) mmol/L BUN 25 H (7.0-18.0) mg/dL Creatinine 1.2 (0.8-1.3) mg/dL Est Cr Clr Drug Dosing 41.96 mL/min Estimated GFR (MDRD) 57.3 ml/min Glucose 105 (74-106) mg/dL Calcium 8.2 L (8.5-10.1) mg/dL Med Orders - Current: Current Medications Acetaminophen (Tylenol Extra Strength) 500 mg PO Q4H PRN PRN Reason: Pain Atorvastatin Calcium (Lipitor) 40 mg PO BEDTIME [facility] Last Admin: 01/23/19 20:33 Dose: 40 mg Carvedilol (Coreg) 3.125 mg PO BEDTIME MAE Last Admin: 01/23/19 20:34 Dose: 3.125 mg Doxazosin Mesylate (Cardura) 4 mg PO BEDTIME MAE Last Admin: 01/23/19 20:35 Dose: 4 mg Sodium Chloride (Normal Saline) 500 mls @ 999 mls/hr IV STAT MAE Last Admin: 01/22/19 16:34 Dose: 999 mls/hr Heparin Sodium/Sodium Chloride (Heparin-1/2ns 25,000 Units/500) 25,000 unit in 500 mls @ 25.311 mls/hr IV TITRATE MAE; Protocol Last Admin: 01/23/19 17:46 Dose: 17 units/kg/hr, 23.904 mls/hr Ketorolac Tromethamine (Toradol) 15 mg IVPUSH Q6H PRN PRN Reason: Pain Stop: 01/28/19 19:22 Sodium Chloride (Saline Flush) 10 ml FLUSH ASDIRECTED PRN PRN Reason: Keep Vein Open Last Admin: 01/22/19 16:34 Dose: 10 ml Sodium Chloride (Saline Flush) 2.5 ml FLUSH ASDIRECTED PRN PRN Reason: Keep Vein Open Last Admin: 01/22/19 16:34 Dose: 2.5 ml Discontinued Medications Bisacodyl (Dulcolax) 10 mg PO ONETIME ONE Stop: 01/23/19 07:53 Last Admin: 01/23/19 08:14 Dose: 10 mg Heparin Sodium (Porcine) (Heparin Sodium) 5,000 units IVPUSH .BOLUS ONE Stop: 01/22/19 19:20 Last Admin: 01/22/19 19:26 Dose: 5,000 units Heparin Sodium (Porcine) (Heparin Sodium) 1,400 units IVPUSH .BOLUS ONE Stop: 01/23/19 10:26 Last Admin: 01/23/19 10:30 Dose: 1,400 units Heparin Sodium/Sodium Chloride (Heparin-1/2ns 25,000 Units/500) Confirm Administered Dose 25,000 unit in 500 mls @ as directed IV .STK-MED ONE Stop: 01/22/19 19:24 Last Admin: 01/22/19 19:33 Dose: Not Given Iopamidol (Isovue Multipack-370 (76%)) 100 ml IVPUSH ONETIME STA Stop: 01/22/19 18:08 Last Admin: 01/22/19 18:08 Dose: 100 ml Ketorolac Tromethamine (Toradol) 15 mg IVPUSH ONETIME ONE Stop: 01/22/19 18:09 Last Admin: 01/22/19 18:14 Dose: 15 mg Ketorolac Tromethamine (Toradol) 30 mg IVPUSH ONETIME ONE Stop: 01/23/19 15:51 Last Admin: 01/23/19 16:07 Dose: 30 mg Ketorolac Tromethamine (Toradol) 30 mg IVPUSH Q6H PRN PRN Reason: Pain Morphine Sulfate (Morphine) 2 mg IVPUSH ONETIME ONE Stop: 01/22/19 15:58 Last Admin: 01/22/19 16:34 Dose: 2 mg Morphine Sulfate (Morphine) 4 mg IVPUSH ONETIME ONE Stop: 01/22/19 18:09 Last Admin: 01/22/19 18:14 Dose: 4 mg - Exam General: Alert, Oriented Lungs: Clear to Auscultation, Normal Respiratory Effort Cardiovascular: Regular Rate, Regular Rhythm Extremities: No Pedal Edema Skin: Warm, Dry, Intact - Problem List Review Problem List Initiated/Reviewed/Updated: No - My Orders Last 24 Hours: My Active Orders 01/23/19 21:00 Carvedilol [Coreg] 3.125 mg PO BEDTIME Doxazosin [Cardura] 4 mg PO BEDTIME atorvaSTATin [Lipitor] 40 mg PO BEDTIME - Plan Plan:: 88 yo male admitted for PE. Will continue heparin drip. If he remains stable likely discharge home tomorrow
[2019-01-24] MEDS ORDERED: Polyethylene Glycol 3350 Powder 17 GM Packet PO ONE (10:16)
[2019-01-24] MEDS: Heparin Sod,Pork In 0.45% Nacl 25,000 UNIT/500 ML IV.SOLN IV SCH (14:50)
[2019-01-24] MEDS: atorvaSTATin 40 MG Tab PO SCH (20:18)
[2019-01-24] MEDS: Carvedilol 3.125 MG Tab PO SCH (20:18)
[2019-01-24] MEDS: Doxazosin 4 MG Tab PO SCH (20:20)
[2019-01-25 04:33] LABS: CARBON DIOXIDE,CO2 29.4 mmol/L (21.0-32.0); POTASSIUM,K 3.7 mmol/L (3.5-5.1)
[2019-01-25 07:27] VITALS: BP 131/75; PULSE 86
[2019-01-25] MEDS ORDERED: Rivaroxaban 15 MG Tab PO SCH (09:00)
--- NOTE | 2019-01-25 09:24 | PCM.DCSUM1 ---
<Derek Olivarez - Last Filed: 01/25/19 09:19> Discharge Summary - Hospital Course Free Text/Narrative:: Patient is a 88-year-old male admitted for acute pulmonary embolism. He has a PMH of CAD s/p stent placement. CT angiography revealed thrombus in right lower lobe pulmonary artery with right ventricular strain. He was started on a heparin drip. Over the course of his hospital stay he remained stable and denied having any recurrent shortness of breath or chest pain. He was discharged on Xarelto 15 mg PO BID x 21 days. Instructions given to patient to follow-up with PCP within 1 week to continue Xarelto 20 mg PO qd after the initial 21 day course. - Discharge Data Discharge Date: 01/25/19 Discharge Disposition: Home, Self-Care 01 Condition: Good - Patient Summary/Data Consults: Consultations 01/24/19 18:25 PT Evaluation and Treatment [CONS] Routine - Patient Instructions Diet: Heart Healthy Diet Activity: As Tolerated Notify Provider of: Fever, Increased Pain, Swelling and Redness, Drainage, Nausea and/or Vomiting - Discharge Plan *PRESCRIPTION DRUG MONITORING PROGRAM REVIEWED*: Not Applicable *COPY OF PRESCRIPTION DRUG MONITORING REPORT IN PATIENT LALA: Not Applicable Prescriptions/Med Rec: Rivaroxaban [Xarelto] 15 mg PO BID 21 Days #42 tablet Home Medications: Home Meds Aspirin [Adult Low Dose Aspirin EC] 81 mg PO DAILY 12/20/13 [History] Carvedilol [Coreg] 0.5 tab PO BEDTIME 12/20/13 [History] Doxazosin [Cardura] 0.5 tab PO BEDTIME 12/20/13 [History] atorvaSTATin [Lipitor] 0.5 tab PO BEDTIME 12/20/13 [History] traMADol [Ultram] 50 mg PO Q4H PRN #20 tablet 09/30/18 [Rx] Rivaroxaban [Xarelto] 15 mg PO BID 21 Days #42 tablet 01/25/19 [Rx] Patient Handouts: Rivaroxaban oral tablets, Pulmonary Embolism Referrals: Elder Dow MD [Physician] - 01/29/19 1:00 pm (Arrive 15 minutes early for check in) - Discharge Summary/Plan Comment DC Time >30 min.: No - Patient Data Vitals - Most Recent: Last Vital Signs Temp 98.4 F 01/25/19 07:25 Pulse 86 08/05/19 07:25 Resp 16 01/25/19 07:25 BP 131/75 01/25/19 07:25 Pulse Ox 91 L 01/25/19 07:25 Weight - Most Recent: 70.488 kg I&O - Last 24 hours: Intake & Output 01/24/19 01/25/19 01/25/19 22:59 06:59 14:59 Intake Total 580 540 696 Output Total 625 1650 Balance -45 -1110 696 Lab Results - Last 24 hrs: Laboratory Results - last 24 hr 01/24/19 01/24/19 01/24/19 Range/Units 09:53 15:48 21:51 WBC (4.0-11.0) K/uL RBC (4.50-5.90) M/uL Hgb (13.0-17.0) g/dL Hct (38.0-50.0) % MCV (80.0-98.0) fL MCH (27.0-32.0) pg MCHC (31.0-37.0) g/dL RDW Std Deviation (28.0-62.0) fl RDW Coeff of Rosalio (11.0-15.0) % Plt Count (150-400) K/uL MPV (7.40-12.00) fL Nucleated RBC % /100WBC Nucleated RBCs # K/uL APTT 57.9 H 55.7 H 56.5 H (18.6-31.3) SEC Sodium (136-148) mmol/L Potassium (3.5-5.1) mmol/L Chloride (98-107) mmol/L Carbon Dioxide (21.0-32.0) mmol/L BUN (7.0-18.0) mg/dL Creatinine (0.8-1.3) mg/dL Est Cr Clr Drug Dosing mL/min Estimated GFR (MDRD) ml/min Glucose (74-106) mg/dL Calcium (8.5-10.1) mg/dL 01/25/19 01/25/19 01/25/19 Range/Units 04:09 04:09 04:09 WBC 6.37 (4.0-11.0) K/uL RBC 3.90 L (4.50-5.90) M/uL Hgb 11.7 L (13.0-17.0) g/dL Hct 35.2 L (38.0-50.0) % MCV 90.3 (80.0-98.0) fL MCH 30.0 (27.0-32.0) pg MCHC 33.2 (31.0-37.0) g/dL RDW Std Deviation 46.8 (28.0-62.0) fl RDW Coeff of Rosalio 14 (11.0-15.0) % Plt Count 117 L (150-400) K/uL MPV 9.00 (7.40-12.00) fL Nucleated RBC % 0.0 /100WBC Nucleated RBCs # 0 K/uL APTT 60.8 H (18.6-31.3) SEC Sodium 141 (136-148) mmol/L Potassium 3.7 (3.5-5.1) mmol/L Chloride 107 (98-107) mmol/L Carbon Dioxide 29.4 (21.0-32.0) mmol/L BUN 22 H (7.0-18.0) mg/dL Creatinine 1.3 (0.8-1.3) mg/dL Est Cr Clr Drug Dosing 38.73 mL/min Estimated GFR (MDRD) 52.2 ml/min Glucose 105 (74-106) mg/dL Calcium 8.2 L (8.5-10.1) mg/dL Med Orders - Current: Current Medications Acetaminophen (Tylenol Extra Strength) 500 mg PO Q4H PRN PRN Reason: Pain Atorvastatin Calcium (Lipitor) 40 mg PO BEDTIME [facility] Last Admin: 01/24/19 20:18 Dose: 40 mg Carvedilol (Coreg) 3.125 mg PO BEDTIME [facility] Last Admin: 01/24/19 20:18 Dose: 3.125 mg Doxazosin Mesylate (Cardura) 4 mg PO BEDTIME [facility] Last Admin: 01/24/19 20:20 Dose: 4 mg Sodium Chloride (Normal Saline) 500 mls @ 999 mls/hr IV STAT [facility] Last Admin: 01/22/19 16:34 Dose: 999 mls/hr Ketorolac Tromethamine (Toradol) 15 mg IVPUSH Q6H PRN PRN Reason: Pain Stop: 01/28/19 19:22 Rivaroxaban (Xarelto) 15 mg PO BID [facility] Last Admin: 01/25/19 08:35 Dose: 15 mg Sodium Chloride (Saline Flush) 10 ml FLUSH ASDIRECTED PRN PRN Reason: Keep Vein Open Last Admin: 01/22/19 16:34 Dose: 10 ml Sodium Chloride (Saline Flush) 2.5 ml FLUSH ASDIRECTED PRN PRN Reason: Keep Vein Open Last Admin: 01/22/19 16:34 Dose: 2.5 ml Discontinued Medications Bisacodyl (Dulcolax) 10 mg PO ONETIME ONE Stop: 01/23/19 07:53 Last Admin: 01/23/19 08:14 Dose: 10 mg Heparin Sodium (Porcine) (Heparin Sodium) 5,000 units IVPUSH .BOLUS ONE Stop: 01/22/19 19:20 Last Admin: 01/22/19 19:26 Dose: 5,000 units Heparin Sodium (Porcine) (Heparin Sodium) 1,400 units IVPUSH .BOLUS ONE Stop: 01/23/19 10:26 Last Admin: 01/23/19 10:30 Dose: 1,400 units Heparin Sodium/Sodium Chloride (Heparin-1/2ns 25,000 Units/500) 25,000 unit in 500 mls @ 25.311 mls/hr IV TITRATE [facility]; Protocol Last Titration: 01/24/19 17:07 Dose: 17 units/kg/hr, 23.904 mls/hr Heparin Sodium/Sodium Chloride (Heparin-1/2ns 25,000 Units/500) Confirm Administered Dose 25,000 unit in 500 mls @ as directed IV .STK-MED ONE Stop: 01/22/19 19:24 Last Admin: 01/22/19 19:33 Dose: Not Given Iopamidol (Isovue Multipack-370 (76%)) 100 ml IVPUSH ONETIME STA Stop: 01/22/19 18:08 Last Admin: 01/22/19 18:08 Dose: 100 ml Ketorolac Tromethamine (Toradol) 15 mg IVPUSH ONETIME ONE Stop: 01/22/19 18:09 Last Admin: 01/22/19 18:14 Dose: 15 mg Ketorolac Tromethamine (Toradol) 30 mg IVPUSH ONETIME ONE Stop: 01/23/19 15:51 Last Admin: 01/23/19 16:07 Dose: 30 mg Ketorolac Tromethamine (Toradol) 30 mg IVPUSH Q6H PRN PRN Reason: Pain Morphine Sulfate (Morphine) 2 mg IVPUSH ONETIME ONE Stop: 01/22/19 15:58 Last Admin: 01/22/19 16:34 Dose: 2 mg Morphine Sulfate (Morphine) 4 mg IVPUSH ONETIME ONE Stop: 01/22/19 18:09 Last Admin: 01/22/19 18:14 Dose: 4 mg Polyethylene Glycol (Miralax) 17 gm PO ONETIME ONE Stop: 01/24/19 10:17 Last Admin: 01/24/19 11:40 Dose: Not Given - Exam General: Reports: Alert, Oriented, Cooperative, No Acute Distress Lungs: Reports: Clear to Auscultation, Normal Respiratory Effort Cardiovascular: Reports: Regular Rate, Regular Rhythm GI/Abdominal Exam: Normal Bowel Sounds, Soft, Non-Tender, No Distention <Valerio Shelley - Last Filed: 01/25/19 19:54> Discharge Summary - Patient Summary/Data Consults: Consultations 01/24/19 18:25 PT Evaluation and Treatment [CONS] Routine - Patient Data Vitals - Most Recent: Last Vital Signs Temp 36.9 C 01/25/19 07:25 Pulse 86 01/25/19 07:25 Resp 16 01/25/19 07:25 BP 131/75 01/25/19 07:25 Pulse Ox 91 L 01/25/19 07:25 I&O - Last 24 hours: Intake & Output 01/25/19 01/25/19 01/25/19 06:59 14:59 22:59 Intake Total 540 1676 Output Total 1650 800 Balance -1110 876 Lab Results - Last 24 hrs: Laboratory Results - last 24 hr 01/24/19 01/25/19 01/25/19 Range/Units 21:51 04:09 04:09 WBC 6.37 (4.0-11.0) K/uL RBC 3.90 L (4.50-5.90) M/uL Hgb 11.7 L (13.0-17.0) g/dL Hct 35.2 L (38.0-50.0) % MCV 90.3 (80.0-98.0) fL MCH 30.0 (27.0-32.0) pg MCHC 33.2 (31.0-37.0) g/dL RDW Std Deviation 46.8 (28.0-62.0) fl RDW Coeff of Rosalio 14 (11.0-15.0) % Plt Count 117 L (150-400) K/uL MPV 9.00 (7.40-12.00) fL Nucleated RBC % 0.0 /100WBC Nucleated RBCs # 0 K/uL APTT 56.5 H (18.6-31.3) SEC Sodium 141 (136-148) mmol/L Potassium 3.7 (3.5-5.1) mmol/L Chloride 107 (98-107) mmol/L Carbon Dioxide 29.4 (21.0-32.0) mmol/L BUN 22 H (7.0-18.0) mg/dL Creatinine 1.3 (0.8-1.3) mg/dL Est Cr Clr Drug Dosing 38.73 mL/min Estimated GFR (MDRD) 52.2 ml/min Glucose 105 (74-106) mg/dL Calcium 8.2 L (8.5-10.1) mg/dL 01/25/19 Range/Units 04:09 WBC (4.0-11.0) K/uL RBC (4.50-5.90) M/uL Hgb (13.0-17.0) g/dL Hct (38.0-50.0) % MCV (80.0-98.0) fL MCH (27.0-32.0) pg MCHC (31.0-37.0) g/dL RDW Std Deviation (28.0-62.0) fl RDW Coeff of Rosalio (11.0-15.0) % Plt Count (150-400) K/uL MPV (7.40-12.00) fL Nucleated RBC % /100WBC Nucleated RBCs # K/uL APTT 60.8 H (18.6-31.3) SEC Sodium (136-148) mmol/L Potassium (3.5-5.1) mmol/L Chloride (98-107) mmol/L Carbon Dioxide (21.0-32.0) mmol/L BUN (7.0-18.0) mg/dL Creatinine (0.8-1.3) mg/dL Est Cr Clr Drug Dosing mL/min Estimated GFR (MDRD) ml/min Glucose (74-106) mg/dL Calcium (8.5-10.1) mg/dL Med Orders - Current: Current Medications Discontinued Medications Acetaminophen (Tylenol Extra Strength) 500 mg PO Q4H PRN PRN Reason: Pain Atorvastatin Calcium (Lipitor) 40 mg PO BEDTIME [facility] Last Admin: 01/24/19 20:18 Dose: 40 mg Bisacodyl (Dulcolax) 10 mg PO ONETIME ONE Stop: 01/23/19 07:53 Last Admin: 01/23/19 08:14 Dose: 10 mg Carvedilol (Coreg) 3.125 mg PO BEDTIME [facility] Last Admin: 01/24/19 20:18 Dose: 3.125 mg Doxazosin Mesylate (Cardura) 4 mg PO BEDTIME [facility] Last Admin: 01/24/19 20:20 Dose: 4 mg Heparin Sodium (Porcine) (Heparin Sodium) 5,000 units IVPUSH .BOLUS ONE Stop: 01/22/19 19:20 Last Admin: 01/22/19 19:26 Dose: 5,000 units Heparin Sodium (Porcine) (Heparin Sodium) 1,400 units IVPUSH .BOLUS ONE Stop: 01/23/19 10:26 Last Admin: 01/23/19 10:30 Dose: 1,400 units Sodium Chloride (Normal Saline) 500 mls @ 999 mls/hr IV STAT [facility] Last Admin: 01/22/19 16:34 Dose: 999 mls/hr Heparin Sodium/Sodium Chloride (Heparin-1/2ns 25,000 Units/500) 25,000 unit in 500 mls @ 25.311 mls/hr IV TITRATE [facility]; Protocol Last Titration: 01/24/19 17:07 Dose: 17 units/kg/hr, 23.904 mls/hr Heparin Sodium/Sodium Chloride (Heparin-1/2ns 25,000 Units/500) Confirm Administered Dose 25,000 unit in 500 mls @ as directed IV .STK-MED ONE Stop: 01/22/19 19:24 Last Admin: 01/22/19 19:33 Dose: Not Given Iopamidol (Isovue Multipack-370 (76%)) 100 ml IVPUSH ONETIME STA Stop: 01/22/19 18:08 Last Admin: 01/22/19 18:08 Dose: 100 ml Ketorolac Tromethamine (Toradol) 15 mg IVPUSH ONETIME ONE Stop: 01/22/19 18:09 Last Admin: 01/22/19 18:14 Dose: 15 mg Ketorolac Tromethamine (Toradol) 30 mg IVPUSH ONETIME ONE Stop: 01/23/19 15:51 Last Admin: 01/23/19 16:07 Dose: 30 mg Ketorolac Tromethamine (Toradol) 30 mg IVPUSH Q6H PRN PRN Reason: Pain Ketorolac Tromethamine (Toradol) 15 mg IVPUSH Q6H PRN PRN Reason: Pain Stop: 01/28/19 19:22 Morphine Sulfate (Morphine) 2 mg IVPUSH ONETIME ONE Stop: 01/22/19 15:58 Last Admin: 01/22/19 16:34 Dose: 2 mg Morphine Sulfate (Morphine) 4 mg IVPUSH ONETIME ONE Stop: 01/22/19 18:09 Last Admin: 01/22/19 18:14 Dose: 4 mg Polyethylene Glycol (Miralax) 17 gm PO ONETIME ONE Stop: 01/24/19 10:17 Last Admin: 01/24/19 11:40 Dose: Not Given Rivaroxaban (Xarelto) 15 mg PO BID [facility] Last Admin: 01/25/19 08:35 Dose: 15 mg Sodium Chloride (Saline Flush) 10 ml FLUSH ASDIRECTED PRN PRN Reason: Keep Vein Open Last Admin: 01/22/19 16:34 Dose: 10 ml Sodium Chloride (Saline Flush) 2.5 ml FLUSH ASDIRECTED PRN PRN Reason: Keep Vein Open Last Admin: 01/22/19 16:34 Dose: 2.5 ml - Free Text/Narrative Note: I have evaluated the patient. I have discussed findings and treatment plan with resident. I agree with the assessment and plan outlined in the following note.
== END 2019-01-25 12:30 | disposition home or self-care (01) | DRG 176 ==
LOC: MW.ED 14:51 → MW.MS 19:18 → OBSVTOIN 01-23 09:05
PROVIDERS: ADMIT Internal Medicine; ATTEND Internal Medicine
DX: I26.99 Other pulmonary embolism without acute cor pulmonale (principal); H54.7 Unspecified visual loss; I25.10 Atherosclerotic heart disease of native coronary artery without angina pectoris; I10 Essential (primary) hypertension; K59.00 Constipation, unspecified; E78.00 Pure hypercholesterolemia, unspecified; Z95.5 Presence of coronary angioplasty implant and graft; Z79.82 Long term (current) use of aspirin; Z98.49 Cataract extraction status, unspecified eye; Z79.899 Other long term (current) drug therapy; Z79.01 Long term (current) use of anticoagulants
CPT/HCPCS: 36415 ×2; 71046; 71275; 74177; 80048; 80053; 83605; 85025 ×2; 85610; 85730 ×2; 93005; 96365; 96366 ×2; 96374; 96375; 96376; 99285; A9270; G0378 ×2; J1644 ×3; J1885; J2270 ×2; J7040; Q9967; 85027; 97161-GP